=== PATIENT | male | born 1965 | race Two or more races ===

== ENCOUNTER 2019-04-07 21:02 | Emergency (ER) | payer SELFPAY ==
[~2019-04-07] VITALS: Ht 170.2 cm; Wt 73.0 kg
[2019-04-07 21:21] VITALS: BP 101/63
== END 2019-04-07 21:45 | disposition left against medical advice (07) ==
LOC: ER 21:02
DX: R42 Dizziness and giddiness (principal); Z53.21 Procedure and treatment not carried out due to patient leaving prior to being seen by health care provider